=== PATIENT | female | born 1990 | race Caucasian/White ===

== ENCOUNTER 2020-02-28 13:27 | Outpatient (REF) | payer OTHER, SELFPAY ==
[2020-03-04 12:02] LABS: Patient Race White; SARS-CoV-2 RNA Undetected (Undetected); SARS-CoV-2 Specimen Source Nasal
== END 2020-02-28 13:47 ==
LOC: NCHCN 13:27
PROVIDERS: Visit Provider Family Medicine
DX: Z20.828 Contact with and (suspected) exposure to other viral communicable diseases (principal)
CPT/HCPCS: U0003

== ENCOUNTER 2022-01-16 19:14 | Outpatient (REF) | payer OTHER, SELFPAY ==
[2022-01-16 17:22] LABS: HCT 40.1 % (36.0-46.0); HGB 12.8 g/dL (11.2-15.7)
[2022-01-16 17:55] LABS: Hemoglobin A1C 5.3 % (<5.7)
[2022-01-16 18:19] LABS: TSH 6.53 uIU/mL (0.36-3.74)
[2022-01-16 18:37] LABS: FREE T4 0.91 ng/dL (0.76-1.46)
[2022-01-18 17:53] LABS: T3,Free 4.4 pg/mL (2.8-5.3)
== END 2022-01-16 19:15 | disposition home or self-care (01) ==
LOC: NCHCN 19:14
PROVIDERS: Visit Provider Family Medicine
DX: E07.9 Disorder of thyroid, unspecified (principal); Z00.00 Encounter for general adult medical examination without abnormal findings
CPT/HCPCS: 83036; 84439; 84443; 84481; 85014; 85018

== ENCOUNTER 2022-06-15 13:22 | Outpatient (REF) | payer OTHER, SELFPAY | END 2022-06-15 13:23 | disposition home or self-care (01) | LOC: NCHCN 13:22 | PROVIDERS: Visit Provider Family Medicine | DX: E07.9 Disorder of thyroid, unspecified (principal) | CPT/HCPCS: 84439; 84443 ==

== ENCOUNTER 2022-07-27 12:35 | Outpatient (REF) | payer OTHER, SELFPAY ==
[2022-07-27 15:28] LABS: FREE T4 1.09 ng/dL (0.76-1.46); TSH 1.39 uIU/mL (0.36-3.74)
== END 2022-07-27 12:36 | disposition home or self-care (01) ==
LOC: NCHCN 12:35
PROVIDERS: PCP Family Medicine; Visit Provider Family Medicine
DX: E07.9 Disorder of thyroid, unspecified (principal)
CPT/HCPCS: 84439; 84443

== ENCOUNTER 2024-07-18 17:18 | Outpatient (REF) | payer OTHER, SELFPAY ==
[2024-07-18 20:24] LABS: FREE T4 1.29 ng/dL (0.76-1.46); TSH 0.79 uIU/mL (0.36-3.74)
== END 2024-07-18 17:19 | disposition home or self-care (01) ==
LOC: NCHCN 17:18
PROVIDERS: PCP Family Medicine; Visit Provider Family Medicine
DX: E07.9 Disorder of thyroid, unspecified (principal)
CPT/HCPCS: 84439; 84443